=== PATIENT | male | born 1955 | race African-American/Black ===

== ENCOUNTER 2021-07-14 23:24 | Inpatient (IN) ==
[2021-07-14] MEDS ORDERED: FAMOTIDINE 20 MG/2 ML VIAL IV STA (23:57)
[2021-07-14] MEDS ORDERED: SODIUM CHLORIDE 0.9% 1,000 ML IV STA (23:57)
[2021-07-14] MEDS ORDERED: MORPHINE 2 MG/1 ML SYRINGE IV STA (23:57)
[2021-07-15] MEDS: ONDANSETRON 4 MG/2 ML VIAL IV PRN (00:29)
[2021-07-15 00:41] LABS: Albumin 2.9 G/DL (3.4-5.0); Bilirubin,Total 1.8 MG/DL (0.20-1.00); Calcium 8.7 MG/DL (8.5-10.1); Osmolality,Calculated 267.5 MOS/KG (273-304); Potassium 3.6 MMOL/L (3.5-5.1); Total Protein 7.7 G/DL (6.4-8.2)
[2021-07-15 00:50] LABS: Basophils # 0.1 10*3/uL (0.0-0.2); Basophils % 0.2 % (0.0-0.8); Eosinophils % 0.1 % (0.00-10.9); Hematocrit 38.6 VOL% (42.0-52.0); Hemoglobin 11.8 GM/DL (14.0-18.0); Immature Granulocytes % 0.4 %; Immature Granulocytes Absolute 0.14 #; Lymphocytes # 30.8 10*3/uL (1.4-4.0); Lymphocytes % 84.4 % (21.2-54.2); Mean Corpuscular HGB Conc 30.6 GM/DL (32-36); Mean Corpuscular Volume 87.1 FL (87-102); Mean Platelet Volume 10.1 FL (9.6-12.0); Monocytes % 0.8 % (1.7-12.7); Neutrophils % 14.1 % (38.7-73.9); Platelet Count 183 T/CUMM (130-400); Red Blood Count 4.43 MC/CUMM (3.8-5.5); Red Cell Distribution Width 14.7 % (9.3-17.3); White Blood Count 36.5 T/CUMM (4-12)
[2021-07-15] MEDS: SODIUM CHLORIDE 0.9% 1,000 ML IV SCH ×4 (02:43→18:17)
[2021-07-15] MEDS: PANTOPRAZOLE 40 MG VIAL IV SCH ×2 (02:44→08:40)
[2021-07-15 03:07] LABS: Lymphocytes 73 % (20-55); Metamyelocytes 1 %; Segmented Neutrophils 25 % (50-85); Total Cells Counted 100
[2021-07-15 03:08] LABS: Hypochromia 2+; Platelet Estimate Normal; Smudge Cells Moderate
[2021-07-15] MEDS ORDERED: metroNIDAZOLE INJ 500 MG/100 ML PREMIX IV SCH (05:00)
[2021-07-15] MEDS ORDERED: PIPERACILLIN/TAZOBACTAM 3,375 MG in SODIUM CHLORIDE 0.9% 100 ML IV SCH (06:00)
[2021-07-15] MEDS: ENOXAPARIN 30 MG/0.3 ML SYRINGE SUBCUT SCH (10:17)
[2021-07-15 22:24] LABS: Bilirubin,Urine Negative (Negative); Blood, Urine Negative (Negative); Glucose,Urine (UA) Negative (Negative); Ketones,Urine 20 mg/dL (Negative); Mucus,Urine Occasional /LPF (Occasional); Nitrite,Urine Negative (Negative); Protein,Urine 30 MG/DL; RBC,Urine 5 /HPF (0-4); Squamous Epithelial Cell,Urine Occasional /HPF (0-10); Urine Appearance CLEAR (Clear); Urine Color Amber (Yellow); Urine Specific Gravity 1.026 (1.001-1.035)
[2021-07-16] MEDS: SODIUM CHLORIDE 0.9% 1,000 ML IV SCH (00:48)
[2021-07-16 05:10] LABS: Basophils # 0.1 10*3/uL (0.0-0.2); Basophils % 0.2 % (0.0-0.8); Hematocrit 34.8 VOL% (42.0-52.0); Hemoglobin 10.4 GM/DL (14.0-18.0); Immature Granulocytes % 0.7 %; Immature Granulocytes Absolute 0.22 #; Lymphocytes # 27.9 10*3/uL (1.4-4.0); Lymphocytes % 84.6 % (21.2-54.2); Mean Corpuscular HGB Conc 29.9 GM/DL (32-36); Mean Corpuscular Volume 89.9 FL (87-102); Mean Platelet Volume 9.9 FL (9.6-12.0); Monocytes % 0.6 % (1.7-12.7); Neutrophils % 13.9 % (38.7-73.9); Platelet Count 170 T/CUMM (130-400); Red Blood Count 3.87 MC/CUMM (3.8-5.5); Red Cell Distribution Width 14.8 % (9.3-17.3)
[2021-07-16 05:31] LABS: Calcium 8.7 MG/DL (8.5-10.1); Osmolality,Calculated 270.8 MOS/KG (273-304); Potassium 3.1 MMOL/L (3.5-5.1)
[2021-07-16 05:34] LABS: Atypical Lymphocytes Few; Band Neutrophils 2 % (0-10); Lymphocytes 56 % (20-55); Platelet Estimate Adequate; Segmented Neutrophils 40 % (50-85); Total Cells Counted 100
[2021-07-16 05:35] LABS: Hypochromia 1+; Microcytosis 1+; Smudge Cells Moderate
[2021-07-16] MEDS: ENOXAPARIN 30 MG/0.3 ML SYRINGE SUBCUT SCH (10:02)
[2021-07-16] MEDS: PANTOPRAZOLE 40 MG VIAL IV SCH (10:04)
[2021-07-16] MEDS ORDERED: chlorproMAZINE INJ 25 MG in SODIUM CHLORIDE 0.9% 100 ML IV ONE (16:30)
[2021-07-16] MEDS: DEXT 5% NACL 0.45% KCL 20 MEQ 20 MEQ/1,000 ML BAG IV SCH ×3 (16:46→23:41)
[2021-07-17 05:30] LABS: Basophils % 0.2 % (0.0-0.8); Hemoglobin 9.1 GM/DL (14.0-18.0); Immature Granulocytes % 0.8 %; Lymphocytes # 21.6 10*3/uL (1.4-4.0); Mean Corpuscular HGB Conc 31.4 GM/DL (32-36); Mean Corpuscular Volume 87.6 FL (87-102); Mean Platelet Volume 9.5 FL (9.6-12.0); Monocytes % 0.9 % (1.7-12.7); Neutrophils % 14.1 % (38.7-73.9); Platelet Count 137 T/CUMM (130-400); Red Blood Count 3.31 MC/CUMM (3.8-5.5); Red Cell Distribution Width 14.5 % (9.3-17.3); White Blood Count 25.7 T/CUMM (4-12)
[2021-07-17 05:35] LABS: Osmolality,Calculated 265.4 MOS/KG (273-304); Potassium 3.2 MMOL/L (3.5-5.1)
[2021-07-17 05:59] LABS: Atypical Lymphocytes Few; Band Neutrophils 2 % (0-10); Hypochromia 1+; Lymphocytes 47 % (20-55); Microcytosis 1+; Platelet Estimate Normal; Segmented Neutrophils 48 % (50-85); Smudge Cells Moderate; Total Cells Counted 100
[2021-07-17] MEDS: DEXT 5% NACL 0.45% KCL 20 MEQ 20 MEQ/1,000 ML BAG IV SCH ×3 (06:49→22:28)
[2021-07-17] MEDS: PANTOPRAZOLE 40 MG VIAL IV SCH (12:06)
[2021-07-17] MEDS: ENOXAPARIN 30 MG/0.3 ML SYRINGE SUBCUT SCH (12:08)
[2021-07-18] MEDS: DEXT 5% NACL 0.45% KCL 20 MEQ 20 MEQ/1,000 ML BAG IV SCH ×3 (05:16→21:46)
[2021-07-18 08:32] LABS: Basophils # 0.1 10*3/uL (0.0-0.2); Basophils % 0.2 % (0.0-0.8); Hematocrit 30.2 VOL% (42.0-52.0); Hemoglobin 9.5 GM/DL (14.0-18.0); Immature Granulocytes % 0.6 %; Immature Granulocytes Absolute 0.22 #; Lymphocytes # 31.9 10*3/uL (1.4-4.0); Lymphocytes % 87.4 % (21.2-54.2); Mean Corpuscular HGB Conc 31.5 GM/DL (32-36); Mean Platelet Volume 9.5 FL (9.6-12.0); Monocytes % 0.7 % (1.7-12.7); NRBC # 0.03 10*3/uL; Neutrophils % 11.1 % (38.7-73.9); Platelet Count 149 T/CUMM (130-400); Red Blood Count 3.47 MC/CUMM (3.8-5.5); Red Cell Distribution Width 14.4 % (9.3-17.3); White Blood Count 36.5 T/CUMM (4-12)
[2021-07-18 08:51] LABS: Calcium 7.4 MG/DL (8.5-10.1); Osmolality,Calculated 261.5 MOS/KG (273-304); Potassium 3.4 MMOL/L (3.5-5.1)
[2021-07-18 09:12] LABS: Lymphocytes 65 % (20-55); Segmented Neutrophils 35 % (50-85); Total Cells Counted 100
[2021-07-18 09:16] LABS: Hypochromia 1+; Microcytosis 1+
[2021-07-18 09:17] LABS: Smudge Cells Few
[2021-07-18 09:18] LABS: Platelet Estimate Adequate
[2021-07-18] MEDS: PANTOPRAZOLE 40 MG VIAL IV SCH (10:48)
[2021-07-18] MEDS ORDERED: MIDAZOLAM 2 MG/2 ML VIAL ONE (11:49)
[2021-07-18] MEDS ORDERED: fentaNYL 100 MCG/2 ML VIAL ONE (11:49)
[2021-07-18] MEDS ORDERED: ROCURONIUM 50 MG/5 ML VIAL IV ONE (11:53)
[2021-07-18] MEDS ORDERED: propofoL 200 MG/20 ML VIAL IV ONE (11:53)
[2021-07-18] MEDS ORDERED: LIDOCAINE 2% 5 ML VIAL ONE (11:53)
[2021-07-18] MEDS ORDERED: SUCCINYLCHOLINE 200 MG/10 ML VIAL ONE (11:53)
[2021-07-18] MEDS ORDERED: SEVOFLURANE 1 UNIT/15 MINUTE INH ONE ×3 (11:53→13:38)
[2021-07-18] MEDS ORDERED: LACTATED RINGERS 1,000 ML IV SCH (12:00)
[2021-07-18] MEDS ORDERED: ALBUMIN 5% 25.0 GM/500 ML VIAL IV ONE (12:07)
[2021-07-18] MEDS ORDERED: ONDANSETRON 4 MG/2 ML VIAL ONE ×2 (12:57→13:38)
[2021-07-18] MEDS ORDERED: SUGAMMADEX 200 MG/2 ML VIAL IV ONE (13:10)
[2021-07-18 14:21] LABS: Bacteria,Urine Occasional /HPF (Few); Bilirubin,Urine Negative (Negative); Blood, Urine Small mg/dL (Negative); Glucose,Urine (UA) Negative (Negative); Ketones,Urine 5 mg/dL (Negative); Mucus,Urine Occasional /LPF (Occasional); Nitrite,Urine Negative (Negative); Protein,Urine 30 MG/DL; RBC,Urine 2 /HPF (0-4); Urine Appearance CLEAR (Clear); Urine Color Amber (Yellow); Urine Specific Gravity 1.013 (1.001-1.035)
[2021-07-18] MEDS ORDERED: LACTATED RINGERS 1,000 ML IV ONE (15:15)
[2021-07-18] MEDS: ENOXAPARIN 30 MG/0.3 ML SYRINGE SUBCUT SCH (15:27)
[2021-07-19] MEDS: DEXT 5% NACL 0.45% KCL 20 MEQ 20 MEQ/1,000 ML BAG IV SCH ×4 (03:46→21:02)
[2021-07-19] MEDS ORDERED: PHENYLEPHRINE DRIP 20 MG/250 ML PREMIX IV ONE (06:04)
[2021-07-19] MEDS: ONDANSETRON 4 MG/2 ML VIAL IV PRN (06:10)
[2021-07-19 06:39] LABS: Basophils # 0.1 10*3/uL (0.0-0.2); Basophils % 0.2 % (0.0-0.8); Hematocrit 31.4 VOL% (42.0-52.0); Hemoglobin 9.6 GM/DL (14.0-18.0); Immature Granulocytes % 1.9 %; Immature Granulocytes Absolute 0.75 #; Lymphocytes # 35.8 10*3/uL (1.4-4.0); Lymphocytes % 92.5 % (21.2-54.2); Mean Corpuscular HGB Conc 30.6 GM/DL (32-36); Mean Corpuscular Volume 88.5 FL (87-102); Mean Platelet Volume 10.1 FL (9.6-12.0); Monocytes % 0.5 % (1.7-12.7); Neutrophils % 4.9 % (38.7-73.9); Platelet Count 133 T/CUMM (130-400); Red Blood Count 3.55 MC/CUMM (3.8-5.5); Red Cell Distribution Width 14.2 % (9.3-17.3); White Blood Count 38.7 T/CUMM (4-12)
[2021-07-19 06:54] LABS: Calcium 7.3 MG/DL (8.5-10.1); Osmolality,Calculated 261.5 MOS/KG (273-304); Potassium 3.8 MMOL/L (3.5-5.1)
[2021-07-19 07:04] LABS: Atypical Lymphocytes Few; Hypochromia Slight; Lymphocytes 71 % (20-55); Platelet Estimate Normal; Segmented Neutrophils 22 % (50-85); Smudge Cells Moderate; Total Cells Counted 100
[2021-07-19] MEDS ORDERED: LACTATED RINGERS 1,000 ML IV ONE ×2 (07:27→14:07)
[2021-07-19] MEDS ORDERED: GLUCAGON 1 MG VIAL IM PRN (07:57)
[2021-07-19] MEDS ORDERED: DEXTROSE 50% 25 GM/50 ML SYRINGE IV PRN (07:57)
[2021-07-19] MEDS: ENOXAPARIN 30 MG/0.3 ML SYRINGE SUBCUT SCH (09:26)
[2021-07-19] MEDS: PANTOPRAZOLE 40 MG VIAL IV SCH (09:26)
[2021-07-19] MEDS: INSULIN REGULAR 100 UNIT/ML SUBCUT SCH ×2 (11:45→18:30)
[2021-07-19] MEDS: FAT EMULSION 20% 250 ML IV SCH (16:21)
[2021-07-19] MEDS: AMINO ACIDS IV SCH (16:57)
[2021-07-19] MEDS: MULTIVITAMIN IV SCH (16:57)
[2021-07-19] MEDS: LYTES IV SCH (16:57)
[2021-07-19] MEDS: DEXT IV SCH (16:57)
[2021-07-19] MEDS ORDERED: DEXTROSE 10% 1,000 ML IV PRN (17:00)
[2021-07-20] MEDS: INSULIN REGULAR 100 UNIT/ML SUBCUT SCH ×4 (00:37→18:00)
[2021-07-20] MEDS: ACETAMINOPHEN 325 MG/10.15 ML UDCUP PO PRN ×2 (00:52→09:03)
[2021-07-20] MEDS: DEXT 5% NACL 0.45% KCL 20 MEQ 20 MEQ/1,000 ML BAG IV SCH ×2 (02:05→07:07)
[2021-07-20 05:53] LABS: Basophils # 0.1 10*3/uL (0.0-0.2); Basophils % 0.2 % (0.0-0.8); Eosinophils % 0.1 % (0.00-10.9); Hematocrit 25.4 VOL% (42.0-52.0); Immature Granulocytes % 0.9 %; Immature Granulocytes Absolute 0.32 #; Lymphocytes % 91.8 % (21.2-54.2); Mean Corpuscular HGB Conc 31.5 GM/DL (32-36); Mean Corpuscular Volume 87.9 FL (87-102); Mean Platelet Volume 9.8 FL (9.6-12.0); Monocytes % 0.7 % (1.7-12.7); NRBC # 0.06 10*3/uL; Neutrophils % 6.3 % (38.7-73.9); Red Blood Count 2.89 MC/CUMM (3.8-5.5); White Blood Count 33.7 T/CUMM (4-12)
[2021-07-20 05:59] LABS: Platelet Count 99 T/CUMM (130-400)
[2021-07-20 06:06] LABS: Calcium 6.7 MG/DL (8.5-10.1); Osmolality,Calculated 262.5 MOS/KG (273-304); Potassium 3.9 MMOL/L (3.5-5.1)
[2021-07-20 06:07] LABS: Band Neutrophils 1 % (0-10); Lymphocytes 82 % (20-55); Platelet Estimate Decreased; Segmented Neutrophils 9 % (50-85); Smudge Cells Many; Total Cells Counted 100
[2021-07-20 06:08] LABS: Hypochromia Slight
[2021-07-20] MEDS: SODIUM CHLORIDE 0.9% 1,000 ML IV SCH ×2 (08:37→21:50)
[2021-07-20] MEDS: PANTOPRAZOLE 40 MG VIAL IV SCH (09:04)
[2021-07-20] MEDS: ENOXAPARIN 30 MG/0.3 ML SYRINGE SUBCUT SCH (09:04)
[2021-07-20] MEDS ORDERED: ALBUTEROL/IPRATROPIUM 3 ML NEB RESP TX PRN (09:45)
[2021-07-20] MEDS: LEVOFLOXACIN INJ 750 MG/150 ML PREMIX IV SCH (10:38)
[2021-07-20] MEDS: IBUPROFEN 100 MG/5 ML UDCUP PO PRN (10:46)
[2021-07-20] MEDS: ALBUTEROL/IPRATROPIUM 3 ML NEB RESP TX SCH ×2 (13:00→19:02)
[2021-07-20] MEDS ORDERED: MAGNESIUM SULF RIDER 2 GM/50 ML PREMIX IV PRN (13:09)
[2021-07-20] MEDS ORDERED: POTASSIUM PHOSPHATE 30 MMOL in SODIUM CHLORIDE 0.9% 250 ML IV ONE (14:00)
[2021-07-20] MEDS: FAT EMULSION 20% 250 ML IV SCH (15:15)
[2021-07-20] MEDS: MULTIVITAMIN IV SCH (17:46)
[2021-07-20] MEDS: DEXT IV SCH (17:46)
[2021-07-20] MEDS: AMINO ACIDS IV SCH (17:46)
[2021-07-20] MEDS: LYTES IV SCH (17:46)
[2021-07-21] MEDS: INSULIN REGULAR 100 UNIT/ML SUBCUT SCH ×4 (00:05→17:19)
[2021-07-21] MEDS: ACETAMINOPHEN 325 MG/10.15 ML UDCUP PO PRN (00:40)
[2021-07-21] MEDS: ALBUTEROL/IPRATROPIUM 3 ML NEB RESP TX SCH ×4 (00:53→19:40)
[2021-07-21 05:40] LABS: Basophils # 0.1 10*3/uL (0.0-0.2); Basophils % 0.2 % (0.0-0.8); Hematocrit 25.2 VOL% (42.0-52.0); Hemoglobin 7.6 GM/DL (14.0-18.0); Immature Granulocytes % 1.3 %; Immature Granulocytes Absolute 0.53 #; Lymphocytes # 38.6 10*3/uL (1.4-4.0); Lymphocytes % 92.7 % (21.2-54.2); Mean Corpuscular HGB Conc 30.2 GM/DL (32-36); Mean Corpuscular Volume 87.8 FL (87-102); Mean Platelet Volume 10.1 FL (9.6-12.0); Monocytes % 0.6 % (1.7-12.7); Neutrophils % 5.2 % (38.7-73.9); Platelet Count 106 T/CUMM (130-400); Red Blood Count 2.87 MC/CUMM (3.8-5.5); Red Cell Distribution Width 13.8 % (9.3-17.3)
[2021-07-21 05:57] LABS: White Blood Count 41.6 T/CUMM (4-12)
[2021-07-21 06:08] LABS: Calcium 7.4 MG/DL (8.5-10.1); Osmolality,Calculated 262.5 MOS/KG (273-304); Potassium 4.1 MMOL/L (3.5-5.1)
[2021-07-21 06:21] LABS: Band Neutrophils 5 % (0-10); Lymphocytes 88 % (20-55); Platelet Estimate Adequate; Segmented Neutrophils 5 % (50-85); Smudge Cells 4+; Total Cells Counted 100
[2021-07-21 06:22] LABS: Anisocytosis 1+; Atypical Lymphocytes Few
[2021-07-21] MEDS: PANTOPRAZOLE 40 MG VIAL IV SCH (08:22)
[2021-07-21] MEDS: ENOXAPARIN 30 MG/0.3 ML SYRINGE SUBCUT SCH (09:02)
[2021-07-21] MEDS: LEVOFLOXACIN INJ 750 MG/150 ML PREMIX IV SCH (09:02)
[2021-07-21] MEDS ORDERED: FUROSEMIDE 40 MG/4 ML VIAL IV ONE (13:52)
[2021-07-21] MEDS: SODIUM CHLORIDE 0.9% 1,000 ML IV SCH ×2 (14:11→14:12)
[2021-07-21] MEDS: FAT EMULSION 20% 250 ML IV SCH (14:34)
[2021-07-21] MEDS: MULTIVITAMIN IV SCH (17:09)
[2021-07-21] MEDS: AMINO ACIDS IV SCH (17:09)
[2021-07-21] MEDS: LYTES IV SCH (17:09)
[2021-07-21] MEDS: DEXT IV SCH (17:09)
[2021-07-21] MEDS: IBUPROFEN 100 MG/5 ML UDCUP PO PRN (19:45)
[2021-07-21] MEDS ORDERED: VECURONIUM 10 MG VIAL IV ONE (21:32)
[2021-07-21] MEDS ORDERED: ETOMIDATE 20 MG/10 ML VIAL IV ONE (21:32)
[2021-07-21] MEDS ORDERED: ATROPINE 1 MG/10 ML SYRINGE IV ONE (21:35)
[2021-07-21] MEDS ORDERED: CALCIUM CHLORIDE 1,000 MG/10 ML SYRINGE IV ONE (21:38)
[2021-07-21] MEDS ORDERED: EPINEPHrine 1 MG/10 ML SYRINGE IV ONE (21:39)
[2021-07-21] MEDS ORDERED: SODIUM BICARBONATE 50 MEQ/50 ML SYRINGE IV ONE (21:40)
[2021-07-21] MEDS ORDERED: NOREPINEPHRINE 4 MG/4 ML VIAL IV ONE (22:06)
[2021-07-21] MEDS: NOREPINEPHRINE 8 MG in SODIUM CHLORIDE 0.9% 242 ML IV PRN (22:12)
[2021-07-21 22:16] LABS: ABG HCO3 29.3 MMOL/L (20-26); ABG PCO2 63.7 MM HG (35-48); ABG PH 7.281 (7.35-7.45); ABG TCO2 31.3 MMOL/L (23-27); Allen Test Positive; Pt O2 Delivery Device Ventilator
[2021-07-21 22:18] LABS: ABG PO2 32.6 MM HG (80-95)
[2021-07-21 22:24] LABS: Hematocrit 24.8 VOL% (42.0-52.0); Hemoglobin 7.2 GM/DL (14.0-18.0); Immature Granulocytes % 0.3 %; Immature Granulocytes Absolute 0.21 #; Lymphocytes % 95.7 % (21.2-54.2); Mean Corpuscular Volume 91.5 FL (87-102); Mean Platelet Volume 10.9 FL (9.6-12.0); Monocytes % 0.5 % (1.7-12.7); NRBC # 0.08 10*3/uL; Neutrophils % 3.5 % (38.7-73.9); Platelet Count 139 T/CUMM (130-400); Red Blood Count 2.71 MC/CUMM (3.8-5.5); Red Cell Distribution Width 14.3 % (9.3-17.3)
[2021-07-21 22:27] LABS: White Blood Count 79.5 T/CUMM (4-12)
[2021-07-21 22:54] LABS: Blood Urea Nitrogen 13 MG/DL (7-18); Calcium 8.9 MG/DL (8.5-10.1); Carbon Dioxide 24 MMOL/L (21-32); Estimated Glom Filtration Rate 113 ML/MIN; Glucose 150 MG/DL (74-106); Osmolality,Calculated 272.1 MOS/KG (273-304); Potassium 4.2 MMOL/L (3.5-5.1); Sodium 135 MMOL/L (136-145)
[2021-07-21 22:55] LABS: ABG Base Excess -6.4 MMOL/L (-2.5-2.5); ABG HCO3 23.6 MMOL/L (20-26); ABG Oxygen Saturation 77.2 % (95-100); ABG PO2 61.1 MM HG (80-95)
[2021-07-21] MEDS ORDERED: LACTATED RINGERS 1,000 ML IV ONE (22:55)
[2021-07-21 22:56] LABS: ABG PH 7.097 (7.35-7.45)
[2021-07-21 22:57] LABS: ABG PCO2 78.4 MM HG (35-48)
[2021-07-21] MEDS ORDERED: SODIUM CHLORIDE 0.9% 1,000 ML IV PRN (22:57)
[2021-07-21] MEDS ORDERED: SODIUM BICARBONATE 50 MEQ/50 ML VIAL IV ONE (22:59)
[2021-07-21 23:07] LABS: Lymphocytes 93 % (20-55); Segmented Neutrophils 7 % (50-85); Total Cells Counted 100
[2021-07-21 23:08] LABS: Smudge Cells Many
[2021-07-21 23:09] LABS: Hypochromia 1+; Platelet Estimate Adequate
[2021-07-21] MEDS ORDERED: CISATRACURIUM 10 MG/5 ML VIAL IV PRN (23:29)
[2021-07-22] MEDS: MIDAZOLAM 100 MG in SODIUM CHLORIDE 0.9% 80 ML IV PRN ×2 (00:19→23:25)
[2021-07-22 00:33] LABS: Bacteria,Urine Occasional /HPF (Few); Bilirubin,Urine Negative (Negative); Blood, Urine Moderate mg/dL (Negative); Glucose,Urine (UA) 50 mg/dL (Negative); Hyaline Casts,Urine 6 /LPF (0-3); Ketones,Urine Negative (Negative); Mucus,Urine Moderate /LPF (Occasional); Nitrite,Urine Negative (Negative); Protein,Urine 30 MG/DL; RBC,Urine 41 /HPF (0-4); Squamous Epithelial Cell,Urine Occasional /HPF (0-10); Urine Appearance Slightly Hazy (Clear); Urine Color Amber (Yellow); Urine Specific Gravity 1.016 (1.001-1.035)
[2021-07-22 00:40] LABS: Hemoglobin 7.7 GM/DL (14.0-18.0); Immature Granulocytes % 0.3 %; Immature Granulocytes Absolute 0.34 #; Lymphocytes # 102.4 10*3/uL (1.4-4.0); Lymphocytes % 95.3 % (21.2-54.2); Mean Corpuscular HGB Conc 28.5 GM/DL (32-36); Mean Corpuscular Volume 92.5 FL (87-102); Monocytes % 0.9 % (1.7-12.7); NRBC # 0.14 10*3/uL; Neutrophils % 3.5 % (38.7-73.9); Platelet Count 141 T/CUMM (130-400); Red Blood Count 2.92 MC/CUMM (3.8-5.5); Red Cell Distribution Width 14.3 % (9.3-17.3)
[2021-07-22 00:41] LABS: White Blood Count 107.4 T/CUMM (4-12)
[2021-07-22 00:42] LABS: INR 1.4; PT Patient Result 15.1 SECS (10.5-12.0); Partial Thromboplastin Time 39.1 SECS (23.8-32.1)
[2021-07-22 00:44] LABS: Amylase 20 U/L (25-115)
[2021-07-22] MEDS ORDERED: NOREPINEPHRINE 4 MG/4 ML VIAL IV ONE (00:44)
[2021-07-22] MEDS: NOREPINEPHRINE 8 MG in SODIUM CHLORIDE 0.9% 242 ML IV PRN ×2 (00:48→06:30)
[2021-07-22] MEDS: VASOPRESSIN 100 UNITS in SODIUM CHLORIDE 0.9% 95 ML IV PRN (00:55)
[2021-07-22 01:10] LABS: ABG Base Excess -4.5 MMOL/L (-2.5-2.5); ABG HCO3 20.5 MMOL/L (20-26); ABG Oxygen Saturation 86.8 % (95-100); ABG PO2 76.1 MM HG (80-95)
[2021-07-22 01:13] LABS: ABG PH 7.133 (7.35-7.45)
[2021-07-22 01:18] LABS: Lymphocytes 90 % (20-55); Segmented Neutrophils 10 % (50-85); Total Cells Counted 100
[2021-07-22 01:19] LABS: Platelet Estimate Adequate; Smudge Cells Many
[2021-07-22 01:20] LABS: Microcytosis 1+; Polychromasia Slight
[2021-07-22 01:21] LABS: Hypochromia Slight
[2021-07-22] MEDS: ALBUTEROL/IPRATROPIUM 3 ML NEB RESP TX SCH ×4 (01:43→19:53)
[2021-07-22] MEDS: MEROPENEM 500 MG in SODIUM CHLORIDE 0.9% 100 ML IV SCH ×5 (03:22→23:18)
[2021-07-22] MEDS: HYDROCORTISONE 100 MG VIAL IV SCH ×5 (03:25→23:22)
[2021-07-22] MEDS: SODIUM BICARB INJ 100 MEQ in DEXTROSE 5% 1,000 ML IV SCH ×3 (04:22→18:37)
[2021-07-22 05:08] LABS: ABG Base Excess -0.8 MMOL/L (-2.5-2.5); ABG HCO3 23.8 MMOL/L (20-26); ABG Oxygen Saturation 99.3 % (95-100); ABG PH 7.293 (7.35-7.45); ABG TCO2 24.7 MMOL/L (23-27)
[2021-07-22 05:27] LABS: Basophils # 0.1 10*3/uL (0.0-0.2); Basophils % 0.1 % (0.0-0.8); Hemoglobin 6.8 GM/DL (14.0-18.0); Immature Granulocytes % 0.8 %; Lymphocytes # 56.2 10*3/uL (1.4-4.0); Lymphocytes % 93.6 % (21.2-54.2); Mean Corpuscular HGB Conc 29.6 GM/DL (32-36); Mean Corpuscular Volume 89.5 FL (87-102); Mean Platelet Volume 11.2 FL (9.6-12.0); Monocytes % 0.6 % (1.7-12.7); NRBC # 0.11 10*3/uL; Neutrophils % 4.9 % (38.7-73.9); Platelet Count 101 T/CUMM (130-400); Red Blood Count 2.57 MC/CUMM (3.8-5.5); Red Cell Distribution Width 14.2 % (9.3-17.3)
[2021-07-22 05:37] LABS: Alanine Aminotransferase 12 U/L (16-61); Albumin 1.1 G/DL (3.4-5.0); Alkaline Phosphatase 54 U/L (45-117); Aspartate Amino Transferase 44 U/L (0-37); Blood Urea Nitrogen 18 MG/DL (7-18); Calcium 7.7 MG/DL (8.5-10.1); Carbon Dioxide 25 MMOL/L (21-32); Estimated Glom Filtration Rate 117 ML/MIN; Glucose 130 MG/DL (74-106); Osmolality,Calculated 269.4 MOS/KG (273-304); Potassium 3.9 MMOL/L (3.5-5.1); Sodium 133 MMOL/L (136-145); Total Protein 4.6 G/DL (6.4-8.2)
[2021-07-22 05:51] LABS: Smudge Cells 4+
[2021-07-22 05:54] LABS: Anisocytosis 1+; Band Neutrophils 8 % (0-10); Hypochromia 1+; Lymphocytes 69 % (20-55); Metamyelocytes 5 %; Nucleated Red Blood Cells 1 (0-5); Platelet Estimate Adequate; Segmented Neutrophils 16 % (50-85); Total Cells Counted 100
[2021-07-22 05:55] LABS: Misc Morphology 5S
[2021-07-22 06:07] LABS: Atypical Lymphocytes Few
[2021-07-22] MEDS: INSULIN REGULAR 100 UNIT/ML SUBCUT SCH ×2 (06:49)
[2021-07-22] MEDS: CISATRACURIUM 200 MG in SODIUM CHLORIDE 0.9% 180 ML IV PRN ×2 (08:46→20:17)
[2021-07-22] MEDS: PANTOPRAZOLE 40 MG VIAL IV SCH (09:07)
[2021-07-22] MEDS: ENOXAPARIN 30 MG/0.3 ML SYRINGE SUBCUT SCH (09:07)
[2021-07-22] MEDS: LEVOFLOXACIN INJ 750 MG/150 ML PREMIX IV SCH (09:07)
[2021-07-22 11:04] LABS: ABG Base Excess 5.5 MMOL/L (-2.5-2.5); ABG HCO3 31.5 MMOL/L (20-26); ABG Oxygen Saturation 99.1 % (95-100); ABG PCO2 55.7 MM HG (35-48); ABG TCO2 33.2 MMOL/L (23-27)
[2021-07-22 11:25] LABS: INR 1.8
[2021-07-22 11:37] LABS: Basophils % 0.1 % (0.0-0.8); Hematocrit 23.3 VOL% (42.0-52.0); Hemoglobin 7.4 GM/DL (14.0-18.0); Immature Granulocytes % 1.3 %; Immature Granulocytes Absolute 0.27 #; Lymphocytes # 18.4 10*3/uL (1.4-4.0); Lymphocytes % 88.4 % (21.2-54.2); Mean Corpuscular HGB Conc 31.8 GM/DL (32-36); Mean Corpuscular Volume 87.3 FL (87-102); Mean Platelet Volume 10.8 FL (9.6-12.0); Monocytes % 0.6 % (1.7-12.7); NRBC # 0.04 10*3/uL; Neutrophils % 9.6 % (38.7-73.9); Red Blood Count 2.67 MC/CUMM (3.8-5.5)
[2021-07-22 11:39] LABS: Platelet Count 48 T/CUMM (130-400); White Blood Count 20.8 T/CUMM (4-12)
[2021-07-22 11:44] LABS: Blood Urea Nitrogen 19 MG/DL (7-18); Calcium 7.2 MG/DL (8.5-10.1); Carbon Dioxide 31 MMOL/L (21-32); Estimated Glom Filtration Rate 132 ML/MIN; Glucose 225 MG/DL (74-106); Osmolality,Calculated 274.4 MOS/KG (273-304); Potassium 3.4 MMOL/L (3.5-5.1); Sodium 133 MMOL/L (136-145)
[2021-07-22] MEDS ORDERED: FUROSEMIDE 40 MG/4 ML VIAL IV ONE (11:49)
[2021-07-22 12:04] LABS: Anisocytosis 1+; Band Neutrophils 11 % (0-10); Lymphocytes 74 % (20-55); Macrocytosis Slight; Myelocytes 1 %; Platelet Estimate Decreased; Segmented Neutrophils 7 % (50-85); Smudge Cells 4+; Total Cells Counted 100
[2021-07-22 12:05] LABS: Atypical Lymphocytes Few; Hypochromia Slight; Nucleated Red Blood Cells 1 (0-5)
[2021-07-22] MEDS: ACETYLCYSTEINE 600 MG CAPSULE PO SCH (12:45)
[2021-07-22] MEDS: SODIUM CHLORIDE 0.9% 1,000 ML IV SCH (15:12)
[2021-07-22] MEDS: MINERAL OIL/PETROLATUM OPH OINT 3.5 GM TUBE BOTH EYES SCH ×2 (15:14→20:37)
[2021-07-22 17:07] LABS: ABG Base Excess 9.1 MMOL/L (-2.5-2.5); ABG HCO3 35.2 MMOL/L (20-26); ABG Oxygen Saturation 98.6 % (95-100); ABG PCO2 57.1 MM HG (35-48); ABG PH 7.408 (7.35-7.45); ABG PO2 139.3 MM HG (80-95)
[2021-07-22 17:09] LABS: Basophils # 0.1 10*3/uL (0.0-0.2); Basophils % 0.2 % (0.0-0.8); Hemoglobin 9.8 GM/DL (14.0-18.0); Immature Granulocytes % 0.7 %; Immature Granulocytes Absolute 0.21 #; Lymphocytes # 28.5 10*3/uL (1.4-4.0); Lymphocytes % 91.7 % (21.2-54.2); Mean Corpuscular HGB Conc 32.7 GM/DL (32-36); Mean Corpuscular Volume 85.5 FL (87-102); Mean Platelet Volume 11.3 FL (9.6-12.0); Monocytes % 0.3 % (1.7-12.7); NRBC # 0.03 10*3/uL; Neutrophils % 7.1 % (38.7-73.9); Platelet Count 57 T/CUMM (130-400); Red Blood Count 3.51 MC/CUMM (3.8-5.5); Red Cell Distribution Width 13.7 % (9.3-17.3); White Blood Count 31.1 T/CUMM (4-12)
[2021-07-22 17:28] LABS: Blood Urea Nitrogen 18 MG/DL (7-18); Calcium 7.1 MG/DL (8.5-10.1); Carbon Dioxide 35 MMOL/L (21-32); Estimated Glom Filtration Rate 142 ML/MIN; Glucose 220 MG/DL (74-106); Osmolality,Calculated 274.4 MOS/KG (273-304); Potassium 2.7 MMOL/L (3.5-5.1); Sodium 133 MMOL/L (136-145)
[2021-07-22 17:45] LABS: INR 1.4; PT Patient Result 15.2 SECS (10.5-12.0)
[2021-07-22] MEDS: POTASSIUM CHLORIDE RIDER 20 MEQ/100 ML PREMIX IV PRN ×2 (17:45→18:52)
[2021-07-22] MEDS ORDERED: POTASSIUM CHLORIDE RIDER 10 MEQ/100 ML PREMIX IV ONE (17:46)
[2021-07-22 17:50] LABS: Partial Thromboplastin Time 43.6 SECS (23.8-32.1)
[2021-07-22 17:55] LABS: Band Neutrophils 4 % (0-10); Lymphocytes 92 % (20-55); Segmented Neutrophils 3 % (50-85); Total Cells Counted 100
[2021-07-22 17:57] LABS: Hypochromia Slight
[2021-07-22 17:58] LABS: Platelet Estimate Decreased; Smudge Cells Many
[2021-07-22] MEDS: POTASSIUM CHLORIDE RIDER 10 MEQ/100 ML PREMIX IV PRN (19:52)
[2021-07-22] MEDS ORDERED: EPINEPHrine 1 MG/10 ML SYRINGE ONE (21:33)
[2021-07-22] MEDS ORDERED: SODIUM BICARBONATE 50 MEQ/50 ML SYRINGE IV ONE (21:33)
[2021-07-22] MEDS ORDERED: ATROPINE 1 MG/10 ML SYRINGE ONE (21:33)
[2021-07-22] MEDS ORDERED: CALCIUM CHLORIDE 1,000 MG/10 ML SYRINGE IV ONE (21:33)
[2021-07-22 23:03] LABS: Basophils % 0.1 % (0.0-0.8); Hematocrit 26.4 VOL% (42.0-52.0); Hemoglobin 8.7 GM/DL (14.0-18.0); Immature Granulocytes % 0.8 %; Immature Granulocytes Absolute 0.18 #; Lymphocytes # 19.6 10*3/uL (1.4-4.0); Lymphocytes % 89.2 % (21.2-54.2); Mean Corpuscular Volume 84.3 FL (87-102); Mean Platelet Volume 11.2 FL (9.6-12.0); Monocytes % 0.4 % (1.7-12.7); NRBC # 0.02 10*3/uL; Neutrophils % 9.5 % (38.7-73.9); Platelet Count 44 T/CUMM (130-400); Red Blood Count 3.13 MC/CUMM (3.8-5.5); Red Cell Distribution Width 13.6 % (9.3-17.3)
[2021-07-22 23:09] LABS: INR 1.3; PT Patient Result 14.6 SECS (10.5-12.0)
[2021-07-22 23:21] LABS: Partial Thromboplastin Time 44.5 SECS (23.8-32.1)
[2021-07-23 00:11] LABS: Blood Urea Nitrogen 17 MG/DL (7-18); Carbon Dioxide 38 MMOL/L (21-32); Estimated Glom Filtration Rate 156 ML/MIN; Glucose 166 MG/DL (74-106); Osmolality,Calculated 269.5 MOS/KG (273-304); Potassium 3.4 MMOL/L (3.5-5.1); Sodium 132 MMOL/L (136-145)
[2021-07-23 00:21] LABS: Band Neutrophils 1 % (0-10); Lymphocytes 83 % (20-55); Segmented Neutrophils 16 % (50-85); Total Cells Counted 100
[2021-07-23 00:22] LABS: Microcytosis 1+; Platelet Estimate Decreased; Smudge Cells Many
[2021-07-23 00:23] LABS: Hypochromia 1+; Polychromasia Slight
[2021-07-23] MEDS: ALBUTEROL/IPRATROPIUM 3 ML NEB RESP TX SCH ×4 (01:00→20:33)
[2021-07-23] MEDS: SODIUM BICARB INJ 100 MEQ in DEXTROSE 5% 1,000 ML IV SCH (01:54)
[2021-07-23] MEDS ORDERED: ALBUMIN 25% 25 GM/100 ML VIAL IV ONE (03:26)
[2021-07-23 04:32] LABS: ABG HCO3 35.8 MMOL/L (20-26); ABG Oxygen Saturation 98.3 % (95-100); ABG PCO2 58.8 MM HG (35-48); ABG PH 7.423 (7.35-7.45); ABG TCO2 35.7 MMOL/L (23-27)
[2021-07-23 04:39] LABS: Basophils % 0.1 % (0.0-0.8); Hematocrit 24.8 VOL% (42.0-52.0); Hemoglobin 8.2 GM/DL (14.0-18.0); Immature Granulocytes % 1.2 %; Immature Granulocytes Absolute 0.22 #; Lymphocytes # 15.5 10*3/uL (1.4-4.0); Lymphocytes % 86.3 % (21.2-54.2); Mean Corpuscular HGB Conc 33.1 GM/DL (32-36); Mean Corpuscular Volume 84.4 FL (87-102); Monocytes % 0.4 % (1.7-12.7); NRBC # 0.02 10*3/uL; Red Blood Count 2.94 MC/CUMM (3.8-5.5); Red Cell Distribution Width 13.5 % (9.3-17.3)
[2021-07-23 04:42] LABS: Platelet Count 38 T/CUMM (130-400)
[2021-07-23 05:04] LABS: Albumin 1.3 G/DL (3.4-5.0); Atypical Lymphocytes Few; Band Neutrophils 1 % (0-10); Bilirubin,Total 1.2 MG/DL (0.20-1.00); Calcium 6.7 MG/DL (8.5-10.1); Hypochromia 1+; Lymphocytes 64 % (20-55); Microcytosis 1+; Osmolality,Calculated 270.4 MOS/KG (273-304); Platelet Estimate Decreased; Potassium 3.3 MMOL/L (3.5-5.1); Segmented Neutrophils 35 % (50-85); Total Cells Counted 100; Total Protein 4.9 G/DL (6.4-8.2)
[2021-07-23 05:05] LABS: Smudge Cells Moderate
[2021-07-23] MEDS: POTASSIUM CHLORIDE RIDER 10 MEQ/100 ML PREMIX IV PRN (05:28)
[2021-07-23] MEDS: HYDROCORTISONE 100 MG VIAL IV SCH ×4 (05:30→23:53)
[2021-07-23] MEDS: MEROPENEM 500 MG in SODIUM CHLORIDE 0.9% 100 ML IV SCH ×4 (05:32→23:53)
[2021-07-23 05:34] LABS: ABG PCO2 76.6 MM HG (35-48)
[2021-07-23] MEDS ORDERED: CALCIUM GLUCONATE 1,000 MG in SODIUM CHLORIDE 0.9% 100 ML IV ONE (06:30)
[2021-07-23 06:36] LABS: INR 1.2; PT Patient Result 13.7 SECS (10.5-12.0); Partial Thromboplastin Time 47.8 SECS (23.8-32.1)
[2021-07-23 07:01] LABS: Blood Urea Nitrogen 18 MG/DL (7-18); Calcium 6.8 MG/DL (8.5-10.1); Carbon Dioxide 37 MMOL/L (21-32); Estimated Glom Filtration Rate 155 ML/MIN; Glucose 150 MG/DL (74-106); Osmolality,Calculated 266.7 MOS/KG (273-304); Potassium 3.3 MMOL/L (3.5-5.1); Sodium 131 MMOL/L (136-145)
[2021-07-23] MEDS: PANTOPRAZOLE 40 MG VIAL IV SCH (09:37)
[2021-07-23] MEDS: ACETYLCYSTEINE 600 MG CAPSULE PO SCH ×4 (09:43→22:30)
[2021-07-23] MEDS: FONDAPARINUX 2.5 MG/0.5 ML SYRINGE SUBCUT SCH (09:43)
[2021-07-23] MEDS: MINERAL OIL/PETROLATUM OPH OINT 3.5 GM TUBE BOTH EYES SCH ×3 (09:44→21:40)
[2021-07-23] MEDS: LEVOFLOXACIN INJ 750 MG/150 ML PREMIX IV SCH (09:44)
[2021-07-23] MEDS: CISATRACURIUM 200 MG in SODIUM CHLORIDE 0.9% 180 ML IV PRN (11:00)
[2021-07-23 11:36] LABS: Basophils % 0.1 % (0.0-0.8); Hematocrit 23.4 VOL% (42.0-52.0); Hemoglobin 7.6 GM/DL (14.0-18.0); Immature Granulocytes % 0.6 %; Lymphocytes # 13.5 10*3/uL (1.4-4.0); Lymphocytes % 83.9 % (21.2-54.2); Mean Corpuscular HGB Conc 32.5 GM/DL (32-36); Mean Corpuscular Volume 85.1 FL (87-102); Mean Platelet Volume 11.6 FL (9.6-12.0); Monocytes % 0.4 % (1.7-12.7); Red Blood Count 2.75 MC/CUMM (3.8-5.5); Red Cell Distribution Width 13.9 % (9.3-17.3); White Blood Count 16.1 T/CUMM (4-12)
[2021-07-23 11:41] LABS: Platelet Count 35 T/CUMM (130-400)
[2021-07-23 11:42] LABS: INR 1.2; PT Patient Result 13.4 SECS (10.5-12.0)
[2021-07-23 11:56] LABS: Blood Urea Nitrogen 19 MG/DL (7-18); Carbon Dioxide 37 MMOL/L (21-32); Estimated Glom Filtration Rate 155 ML/MIN; Glucose 123 MG/DL (74-106); Osmolality,Calculated 264.7 MOS/KG (273-304); Potassium 3.5 MMOL/L (3.5-5.1); Sodium 131 MMOL/L (136-145)
[2021-07-23 12:25] LABS: Lymphocytes 61 % (20-55); Segmented Neutrophils 37 % (50-85); Smudge Cells 4+; Total Cells Counted 100
[2021-07-23 12:26] LABS: Anisocytosis 1+; Hypochromia 2+; Platelet Estimate Decreased; Target Cells Slight
[2021-07-23 15:54] LABS: ABG Base Excess 10.6 MMOL/L (-2.5-2.5); ABG HCO3 34.4 MMOL/L (20-26); ABG Oxygen Saturation 97.7 % (95-100); ABG PCO2 62.3 MM HG (35-48); ABG PH 7.391 (7.35-7.45); ABG TCO2 34.5 MMOL/L (23-27)
[2021-07-23 15:58] LABS: Basophils % 0.1 % (0.0-0.8); Hematocrit 26.3 VOL% (42.0-52.0); Hemoglobin 8.5 GM/DL (14.0-18.0); Immature Granulocytes % 0.5 %; Immature Granulocytes Absolute 0.15 #; Lymphocytes # 23.5 10*3/uL (1.4-4.0); Lymphocytes % 84.7 % (21.2-54.2); Mean Corpuscular HGB Conc 32.3 GM/DL (32-36); Mean Corpuscular Volume 85.7 FL (87-102); Mean Platelet Volume 12.2 FL (9.6-12.0); Monocytes % 0.3 % (1.7-12.7); NRBC # 0.02 10*3/uL; Neutrophils % 14.4 % (38.7-73.9); Platelet Count 46 T/CUMM (130-400); Red Blood Count 3.07 MC/CUMM (3.8-5.5); Red Cell Distribution Width 13.9 % (9.3-17.3); White Blood Count 27.7 T/CUMM (4-12)
[2021-07-23 16:17] LABS: Alanine Aminotransferase 27 U/L (16-61); Albumin 1.5 G/DL (3.4-5.0); Alkaline Phosphatase 55 U/L (45-117); Aspartate Amino Transferase 32 U/L (0-37); Blood Urea Nitrogen 19 MG/DL (7-18); Carbon Dioxide 35 MMOL/L (21-32); Estimated Glom Filtration Rate 155 ML/MIN; Glucose 92 MG/DL (74-106); Osmolality,Calculated 267.4 MOS/KG (273-304); Potassium 3.9 MMOL/L (3.5-5.1); Sodium 133 MMOL/L (136-145); Total Protein 5.4 G/DL (6.4-8.2)
[2021-07-23] MEDS: SODIUM CHLORIDE 0.9% 1,000 ML IV SCH (16:18)
[2021-07-23] MEDS: FAT EMULSION 20% 250 ML IV SCH (16:19)
[2021-07-23] MEDS: MULTIVITAMIN INJ 10 ML in AMINO ACIDS/DEXT/LYTES 5-20% 2,000 ML IV SCH (16:19)
[2021-07-23 16:25] LABS: INR 1.2
[2021-07-23] MEDS ORDERED: DEXTROSE 10% 1,000 ML IV PRN (17:00)
[2021-07-23] MEDS: VASOPRESSIN 100 UNITS in SODIUM CHLORIDE 0.9% 95 ML IV PRN (17:30)
[2021-07-23] MEDS: INSULIN REGULAR 100 UNIT/ML SUBCUT SCH (18:47)
[2021-07-23] MEDS: MIDAZOLAM 100 MG in SODIUM CHLORIDE 0.9% 80 ML IV PRN (19:30)
[2021-07-24] MEDS: INSULIN REGULAR 100 UNIT/ML SUBCUT SCH ×4 (00:02→20:00)
[2021-07-24] MEDS: ALBUTEROL/IPRATROPIUM 3 ML NEB RESP TX SCH ×4 (02:15→19:45)
[2021-07-24 05:04] LABS: ABG Base Excess 12.7 MMOL/L (-2.5-2.5); ABG HCO3 36.9 MMOL/L (20-26); ABG Oxygen Saturation 98.9 % (95-100); ABG PH 7.513 (7.35-7.45); ABG PO2 201.1 MM HG (80-95); ABG TCO2 38.4 MMOL/L (23-27)
[2021-07-24 05:09] LABS: Basophils % 0.2 % (0.0-0.8); Hemoglobin 7.4 GM/DL (14.0-18.0); Immature Granulocytes % 0.4 %; Lymphocytes # 19.9 10*3/uL (1.4-4.0); Lymphocytes % 78.9 % (21.2-54.2); Mean Corpuscular HGB Conc 32.2 GM/DL (32-36); Mean Corpuscular Volume 86.8 FL (87-102); Mean Platelet Volume 12.9 FL (9.6-12.0); NRBC # 0.04 10*3/uL; Neutrophils % 19.5 % (38.7-73.9); Platelet Count 43 T/CUMM (130-400); Red Blood Count 2.65 MC/CUMM (3.8-5.5); Red Cell Distribution Width 14.3 % (9.3-17.3); White Blood Count 25.2 T/CUMM (4-12)
[2021-07-24 05:20] LABS: Albumin 1.4 G/DL (3.4-5.0); Bilirubin,Total 0.6 MG/DL (0.20-1.00); Calcium 6.9 MG/DL (8.5-10.1); Osmolality,Calculated 271.2 MOS/KG (273-304); Potassium 3.7 MMOL/L (3.5-5.1)
[2021-07-24 05:30] LABS: Atypical Lymphocytes Few; Band Neutrophils 3 % (0-10); Hypochromia 1+; Lymphocytes 40 % (20-55); Microcytosis 1+; Platelet Estimate Decreased; Segmented Neutrophils 57 % (50-85); Smudge Cells Moderate; Total Cells Counted 100
[2021-07-24 05:35] LABS: Calcium 6.8 MG/DL (8.5-10.1); Osmolality,Calculated 273.1 MOS/KG (273-304); Potassium 3.7 MMOL/L (3.5-5.1)
[2021-07-24] MEDS: MEROPENEM 500 MG in SODIUM CHLORIDE 0.9% 100 ML IV SCH ×4 (05:56→23:42)
[2021-07-24] MEDS: HYDROCORTISONE 100 MG VIAL IV SCH ×4 (05:57→23:43)
[2021-07-24] MEDS: FONDAPARINUX 2.5 MG/0.5 ML SYRINGE SUBCUT SCH (08:44)
[2021-07-24] MEDS: PANTOPRAZOLE 40 MG VIAL IV SCH (08:45)
[2021-07-24] MEDS: ACETYLCYSTEINE 600 MG CAPSULE PO SCH (08:45)
[2021-07-24] MEDS: MINERAL OIL/PETROLATUM OPH OINT 3.5 GM TUBE BOTH EYES SCH ×3 (08:46→21:34)
[2021-07-24] MEDS: LEVOFLOXACIN INJ 750 MG/150 ML PREMIX IV SCH (09:01)
[2021-07-24] MEDS: SODIUM CHLORIDE 0.9% 1,000 ML IV SCH (16:27)
[2021-07-24] MEDS: FAT EMULSION 20% 250 ML IV SCH (18:46)
[2021-07-24] MEDS: MULTIVITAMIN INJ 10 ML in AMINO ACIDS/DEXT/LYTES 5-20% 2,000 ML IV SCH (18:46)
[2021-07-25] MEDS: INSULIN REGULAR 100 UNIT/ML SUBCUT SCH ×5 (00:47→23:32)
[2021-07-25] MEDS: ALBUTEROL/IPRATROPIUM 3 ML NEB RESP TX SCH ×4 (01:12→19:08)
[2021-07-25] MEDS: HYDROmorphone 2 MG/1 ML VIAL IV PRN ×2 (02:02→13:28)
[2021-07-25 04:56] LABS: ABG HCO3 38.2 MMOL/L (20-26); ABG Oxygen Saturation 94.2 % (95-100); ABG PCO2 62.3 MM HG (35-48); ABG PH 7.405 (7.35-7.45); ABG PO2 79.8 MM HG (80-95); ABG TCO2 40.1 MMOL/L (23-27)
[2021-07-25 05:08] LABS: Basophils % 0.1 % (0.0-0.8); Hematocrit 24.2 VOL% (42.0-52.0); Hemoglobin 7.5 GM/DL (14.0-18.0); Immature Granulocytes % 0.3 %; Immature Granulocytes Absolute 0.09 #; Lymphocytes # 22.5 10*3/uL (1.4-4.0); Lymphocytes % 80.7 % (21.2-54.2); Mean Corpuscular Volume 90.6 FL (87-102); Mean Platelet Volume 12.1 FL (9.6-12.0); Monocytes % 0.4 % (1.7-12.7); NRBC # 0.02 10*3/uL; Neutrophils % 18.5 % (38.7-73.9); Platelet Count 50 T/CUMM (130-400); Red Blood Count 2.67 MC/CUMM (3.8-5.5); Red Cell Distribution Width 14.8 % (9.3-17.3); White Blood Count 27.9 T/CUMM (4-12)
[2021-07-25 05:17] LABS: Calcium 7.1 MG/DL (8.5-10.1); Osmolality,Calculated 283.3 MOS/KG (273-304); Potassium 3.4 MMOL/L (3.5-5.1)
[2021-07-25 05:26] LABS: Atypical Lymphocytes Few; Hypochromia 1+; Lymphocytes 48 % (20-55); Microcytosis 1+; Platelet Estimate Decreased; Segmented Neutrophils 52 % (50-85); Smudge Cells Many; Total Cells Counted 100
[2021-07-25] MEDS: MEROPENEM 500 MG in SODIUM CHLORIDE 0.9% 100 ML IV SCH ×4 (05:42→22:02)
[2021-07-25] MEDS: HYDROCORTISONE 100 MG VIAL IV SCH ×4 (05:43→22:02)
[2021-07-25] MEDS ORDERED: POTASSIUM CHLORIDE 20 MEQ PACK PER TUBE SCH (08:00)
[2021-07-25] MEDS: POTASSIUM BICARB EFFERVESCENT 20 MEQ TAB.EFF PER TUBE SCH ×3 (08:41→16:48)
[2021-07-25] MEDS: SODIUM CHLORIDE 0.9% 1,000 ML IV SCH ×2 (10:11→22:21)
[2021-07-25] MEDS: FONDAPARINUX 2.5 MG/0.5 ML SYRINGE SUBCUT SCH (10:11)
[2021-07-25] MEDS: PANTOPRAZOLE 40 MG VIAL IV SCH (10:12)
[2021-07-25] MEDS: MINERAL OIL/PETROLATUM OPH OINT 3.5 GM TUBE BOTH EYES SCH (10:12)
[2021-07-25] MEDS: LEVOFLOXACIN INJ 750 MG/150 ML PREMIX IV SCH (10:12)
[2021-07-25] MEDS: MIDAZOLAM 100 MG in SODIUM CHLORIDE 0.9% 80 ML IV PRN (17:17)
[2021-07-26] MEDS: ALBUTEROL/IPRATROPIUM 3 ML NEB RESP TX SCH ×4 (01:20→19:01)
[2021-07-26] MEDS: SODIUM CHLORIDE 0.9% 1,000 ML IV SCH (02:34)
[2021-07-26] MEDS: MEROPENEM 500 MG in SODIUM CHLORIDE 0.9% 100 ML IV SCH ×3 (04:44→16:16)
[2021-07-26] MEDS: HYDROCORTISONE 100 MG VIAL IV SCH ×3 (04:44→21:32)
[2021-07-26 04:54] LABS: ABG Base Excess 11.1 MMOL/L (-2.5-2.5); ABG HCO3 34.7 MMOL/L (20-26); ABG PCO2 58.7 MM HG (35-48); ABG PH 7.412 (7.35-7.45); ABG PO2 59.9 MM HG (80-95); ABG TCO2 34.9 MMOL/L (23-27)
[2021-07-26 04:56] LABS: Basophils # 0.1 10*3/uL (0.0-0.2); Basophils % 0.2 % (0.0-0.8); Hematocrit 28.6 VOL% (42.0-52.0); Hemoglobin 8.5 GM/DL (14.0-18.0); Immature Granulocytes % 0.3 %; Immature Granulocytes Absolute 0.13 #; Lymphocytes # 37.5 10*3/uL (1.4-4.0); Lymphocytes % 87.3 % (21.2-54.2); Mean Corpuscular HGB Conc 29.7 GM/DL (32-36); Mean Corpuscular Volume 93.2 FL (87-102); Mean Platelet Volume 11.7 FL (9.6-12.0); Monocytes % 0.3 % (1.7-12.7); NRBC # 0.04 10*3/uL; Neutrophils % 11.9 % (38.7-73.9); Platelet Count 66 T/CUMM (130-400); Red Blood Count 3.07 MC/CUMM (3.8-5.5)
[2021-07-26 04:58] LABS: White Blood Count 42.9 T/CUMM (4-12)
[2021-07-26 05:19] LABS: Hypochromia Slight; Platelet Estimate Decreased; Smudge Cells Moderate
[2021-07-26 05:42] LABS: Calcium 7.5 MG/DL (8.5-10.1); Osmolality,Calculated 287.8 MOS/KG (273-304); Potassium 4.1 MMOL/L (3.5-5.1)
[2021-07-26] MEDS: INSULIN REGULAR 100 UNIT/ML SUBCUT SCH ×3 (05:43→18:06)
[2021-07-26] MEDS ORDERED: FUROSEMIDE 40 MG/4 ML VIAL IV ONE (07:18)
[2021-07-26] MEDS: LEVOFLOXACIN INJ 750 MG/150 ML PREMIX IV SCH (09:40)
[2021-07-26] MEDS: FONDAPARINUX 2.5 MG/0.5 ML SYRINGE SUBCUT SCH (09:55)
[2021-07-26] MEDS: PANTOPRAZOLE 40 MG VIAL IV SCH (09:57)
[2021-07-26] MEDS: HYDROcod/ACETAMIN 7.5-325 MG/15 ML UDCUP PO PRN ×2 (11:00→21:32)
[2021-07-26] MEDS: FUROSEMIDE 40 MG/4 ML VIAL IV SCH (16:17)
[2021-07-26] MEDS: ONDANSETRON 4 MG/2 ML VIAL IV PRN (18:00)
[2021-07-27] MEDS: ALBUTEROL/IPRATROPIUM 3 ML NEB RESP TX SCH ×4 (00:55→18:53)
[2021-07-27] MEDS: INSULIN REGULAR 100 UNIT/ML SUBCUT SCH ×4 (03:06→17:33)
[2021-07-27 04:25] LABS: Basophils # 0.1 10*3/uL (0.0-0.2); Basophils % 0.2 % (0.0-0.8); Hematocrit 27.6 VOL% (42.0-52.0); Hemoglobin 8.3 GM/DL (14.0-18.0); Immature Granulocytes % 0.1 %; Immature Granulocytes Absolute 0.05 #; Lymphocytes # 31.3 10*3/uL (1.4-4.0); Lymphocytes % 87.6 % (21.2-54.2); Mean Corpuscular HGB Conc 30.1 GM/DL (32-36); Mean Corpuscular Volume 94.5 FL (87-102); Mean Platelet Volume 11.8 FL (9.6-12.0); Monocytes % 0.2 % (1.7-12.7); NRBC # 0.03 10*3/uL; Neutrophils % 11.9 % (38.7-73.9); Red Blood Count 2.92 MC/CUMM (3.8-5.5); Red Cell Distribution Width 14.9 % (9.3-17.3); White Blood Count 35.7 T/CUMM (4-12)
[2021-07-27 04:26] LABS: Platelet Count 64 T/CUMM (130-400)
[2021-07-27 05:09] LABS: Atypical Lymphocytes Few; Band Neutrophils 1 % (0-10); Hypochromia 1+; Lymphocytes 44 % (20-55); Microcytosis 1+; Platelet Estimate Decreased; Segmented Neutrophils 55 % (50-85); Smudge Cells Many; Total Cells Counted 100
[2021-07-27] MEDS: MEROPENEM 500 MG in SODIUM CHLORIDE 0.9% 100 ML IV SCH ×5 (06:05→22:15)
[2021-07-27 07:47] LABS: Calcium 7.9 MG/DL (8.5-10.1); Osmolality,Calculated 288.8 MOS/KG (273-304); Potassium 3.8 MMOL/L (3.5-5.1)
[2021-07-27] MEDS: FUROSEMIDE 40 MG/4 ML VIAL IV SCH (08:34)
[2021-07-27] MEDS: FONDAPARINUX 2.5 MG/0.5 ML SYRINGE SUBCUT SCH (08:37)
[2021-07-27] MEDS: PANTOPRAZOLE 40 MG VIAL IV SCH (08:39)
[2021-07-27] MEDS: HYDROCORTISONE 100 MG VIAL IV SCH ×3 (08:42→22:10)
[2021-07-27] MEDS: LEVOFLOXACIN INJ 750 MG/150 ML PREMIX IV SCH (09:32)
[2021-07-27] MEDS: HYDROcod/ACETAMIN 7.5-325 MG/15 ML UDCUP PO PRN (10:30)
[2021-07-27] MEDS: POTASSIUM CHLORIDE RIDER 20 MEQ/100 ML PREMIX IV PRN (12:43)
[2021-07-27 14:36] LABS: ABG Base Excess 15.3 MMOL/L (-2.5-2.5); ABG HCO3 39.1 MMOL/L (20-26); ABG Oxygen Saturation 93.7 % (95-100); ABG PCO2 60.6 MM HG (35-48); ABG PH 7.448 (7.35-7.45); ABG PO2 71.4 MM HG (80-95); ABG TCO2 38.6 MMOL/L (23-27)
[2021-07-28] MEDS: ALBUTEROL/IPRATROPIUM 3 ML NEB RESP TX SCH ×4 (01:38→18:51)
[2021-07-28] MEDS: INSULIN REGULAR 100 UNIT/ML SUBCUT SCH ×4 (01:40→17:31)
[2021-07-28] MEDS: HYDROcod/ACETAMIN 7.5-325 MG/15 ML UDCUP PO PRN (03:09)
[2021-07-28 04:41] LABS: Calcium 7.4 MG/DL (8.5-10.1); Osmolality,Calculated 296.3 MOS/KG (273-304); Potassium 3.6 MMOL/L (3.5-5.1)
[2021-07-28 04:43] LABS: Basophils # 0.1 10*3/uL (0.0-0.2); Basophils % 0.2 % (0.0-0.8); Hematocrit 28.2 VOL% (42.0-52.0); Hemoglobin 8.3 GM/DL (14.0-18.0); Immature Granulocytes % 0.3 %; Immature Granulocytes Absolute 0.12 #; Lymphocytes # 32.5 10*3/uL (1.4-4.0); Lymphocytes % 81.4 % (21.2-54.2); Mean Corpuscular HGB Conc 29.4 GM/DL (32-36); Mean Corpuscular Volume 95.3 FL (87-102); Mean Platelet Volume 12.3 FL (9.6-12.0); Monocytes % 0.9 % (1.7-12.7); NRBC # 0.03 10*3/uL; Neutrophils % 17.2 % (38.7-73.9); Platelet Count 67 T/CUMM (130-400); Red Blood Count 2.96 MC/CUMM (3.8-5.5); Red Cell Distribution Width 15.2 % (9.3-17.3); White Blood Count 39.9 T/CUMM (4-12)
[2021-07-28 05:16] LABS: Hypochromia 1+; Lymphocytes 39 % (20-55); Platelet Estimate Decreased; Segmented Neutrophils 58 % (50-85); Smudge Cells Moderate; Total Cells Counted 100
[2021-07-28] MEDS: MEROPENEM 500 MG in SODIUM CHLORIDE 0.9% 100 ML IV SCH ×4 (06:00→23:34)
[2021-07-28] MEDS: HYDROCORTISONE 100 MG VIAL IV SCH ×2 (09:01→21:37)
[2021-07-28] MEDS: FUROSEMIDE 40 MG/4 ML VIAL IV SCH (09:05)
[2021-07-28] MEDS: PANTOPRAZOLE 40 MG VIAL IV SCH (09:07)
[2021-07-28] MEDS: FONDAPARINUX 2.5 MG/0.5 ML SYRINGE SUBCUT SCH (09:10)
[2021-07-28] MEDS: POTASSIUM CHLORIDE RIDER 20 MEQ/100 ML PREMIX IV PRN (11:44)
[2021-07-28] MEDS: VANCOMYCIN INJ 1,000 MG in SODIUM CHLORIDE 0.9% 250 ML IV SCH ×2 (11:50→21:37)
[2021-07-28] MEDS: ONDANSETRON 4 MG/2 ML VIAL IV PRN (20:37)
[2021-07-28] MEDS ORDERED: MORPHINE 2 MG/1 ML SYRINGE IV ONE (22:16)
[2021-07-28] MEDS ORDERED: LEVALBUTEROL 1.25 MG/3 ML NEB RESP TX ONE (22:21)
[2021-07-29] MEDS: ALBUTEROL/IPRATROPIUM 3 ML NEB RESP TX SCH ×4 (00:51→18:41)
[2021-07-29] MEDS: INSULIN REGULAR 100 UNIT/ML SUBCUT SCH ×4 (01:04→18:31)
[2021-07-29] MEDS: MORPHINE 2 MG/1 ML SYRINGE IV PRN ×2 (01:44→23:55)
[2021-07-29 03:54] LABS: ABG Base Excess 14.8 MMOL/L (-2.5-2.5); ABG HCO3 38.6 MMOL/L (20-26); ABG Oxygen Saturation 91.6 % (95-100); ABG PCO2 67.3 MM HG (35-48); ABG PH 7.408 (7.35-7.45); ABG TCO2 38.8 MMOL/L (23-27)
[2021-07-29 03:57] LABS: Basophils # 0.1 10*3/uL (0.0-0.2); Basophils % 0.2 % (0.0-0.8); Hematocrit 30.5 VOL% (42.0-52.0); Hemoglobin 9.1 GM/DL (14.0-18.0); Immature Granulocytes % 0.3 %; Immature Granulocytes Absolute 0.14 #; Lymphocytes # 35.5 10*3/uL (1.4-4.0); Lymphocytes % 81.6 % (21.2-54.2); Mean Corpuscular HGB Conc 29.8 GM/DL (32-36); Mean Platelet Volume 11.4 FL (9.6-12.0); Monocytes % 0.5 % (1.7-12.7); NRBC # 0.02 10*3/uL; Neutrophils % 17.4 % (38.7-73.9); Red Blood Count 3.21 MC/CUMM (3.8-5.5); Red Cell Distribution Width 16.5 % (9.3-17.3)
[2021-07-29 04:12] LABS: Platelet Count 73 T/CUMM (130-400)
[2021-07-29 04:13] LABS: Calcium 7.7 MG/DL (8.5-10.1); Osmolality,Calculated 294.3 MOS/KG (273-304); Potassium 4.5 MMOL/L (3.5-5.1); White Blood Count 43.5 T/CUMM (4-12)
[2021-07-29 04:33] LABS: Band Neutrophils 2 % (0-10); Hypochromia 1+; Lymphocytes 40 % (20-55); Microcytosis 1+; Segmented Neutrophils 58 % (50-85); Total Cells Counted 100
[2021-07-29 04:34] LABS: Atypical Lymphocytes Few; Platelet Estimate Decreased; Smudge Cells Moderate; Target Cells Few
[2021-07-29] MEDS: MEROPENEM 500 MG in SODIUM CHLORIDE 0.9% 100 ML IV SCH (05:45)
[2021-07-29] MEDS: VANCOMYCIN INJ 1,000 MG in SODIUM CHLORIDE 0.9% 250 ML IV SCH ×2 (09:26→22:00)
[2021-07-29] MEDS: FUROSEMIDE 40 MG/4 ML VIAL IV SCH (09:26)
[2021-07-29] MEDS: PANTOPRAZOLE 40 MG VIAL IV SCH (09:26)
[2021-07-29] MEDS: HYDROCORTISONE 100 MG VIAL IV SCH ×2 (09:26→22:50)
[2021-07-29] MEDS: FONDAPARINUX 2.5 MG/0.5 ML SYRINGE SUBCUT SCH (09:27)
[2021-07-29] MEDS: DEXTROSE 10% 250 ML BAG IV PRN (12:15)
[2021-07-30] MEDS: INSULIN REGULAR 100 UNIT/ML SUBCUT SCH ×5 (01:17→23:52)
[2021-07-30 04:55] LABS: ABG Base Excess 15.3 MMOL/L (-2.5-2.5); ABG HCO3 39.1 MMOL/L (20-26); ABG Oxygen Saturation 92.5 % (95-100); ABG PH 7.394 (7.35-7.45); ABG PO2 70.6 MM HG (80-95); ABG TCO2 39.9 MMOL/L (23-27)
[2021-07-30 05:15] LABS: ABG PCO2 70.3 MM HG (35-48)
[2021-07-30 05:20] LABS: Basophils % 0.1 % (0.0-0.8); Eosinophils % 0.1 % (0.00-10.9); Hematocrit 30.8 VOL% (42.0-52.0); Immature Granulocytes % 0.2 %; Lymphocytes # 39.5 10*3/uL (1.4-4.0); Mean Corpuscular HGB Conc 29.2 GM/DL (32-36); Mean Platelet Volume 11.5 FL (9.6-12.0); Monocytes % 0.2 % (1.7-12.7); NRBC # 0.02 10*3/uL; Neutrophils % 15.4 % (38.7-73.9); Red Blood Count 3.21 MC/CUMM (3.8-5.5); Red Cell Distribution Width 16.2 % (9.3-17.3)
[2021-07-30 05:21] LABS: Platelet Count 89 T/CUMM (130-400)
[2021-07-30 05:22] LABS: White Blood Count 47.1 T/CUMM (4-12)
[2021-07-30 05:31] LABS: Calcium 8.1 MG/DL (8.5-10.1); Osmolality,Calculated 300.9 MOS/KG (273-304); Potassium 3.8 MMOL/L (3.5-5.1)
[2021-07-30 05:32] LABS: Atypical Lymphocytes Few; Hypochromia 1+; Lymphocytes 35 % (20-55); Microcytosis 1+; Platelet Estimate Decreased; Segmented Neutrophils 65 % (50-85); Smudge Cells Many; Total Cells Counted 100
[2021-07-30] MEDS: ALBUTEROL/IPRATROPIUM 3 ML NEB RESP TX SCH ×4 (07:06→19:17)
[2021-07-30] MEDS ORDERED: LIDOCAINE 2% VISCOUS 100 ML BOTTLE SWISH/SPIT ONE (07:30)
[2021-07-30] MEDS ORDERED: LIDOCAINE 1% 20 ML VIAL MISC INJ ONE (07:30)
[2021-07-30] MEDS ORDERED: LIDOCAINE 2% 20 ML VIAL RESP TX ONE (07:30)
[2021-07-30] MEDS ORDERED: MIDAZOLAM 2 MG/2 ML VIAL IV ONE (07:30)
[2021-07-30] MEDS: VANCOMYCIN INJ 1,000 MG in SODIUM CHLORIDE 0.9% 250 ML IV SCH ×2 (08:49→17:34)
[2021-07-30] MEDS: PANTOPRAZOLE 40 MG VIAL IV SCH (08:50)
[2021-07-30] MEDS: FUROSEMIDE 40 MG/4 ML VIAL IV SCH (08:50)
[2021-07-30] MEDS: FONDAPARINUX 2.5 MG/0.5 ML SYRINGE SUBCUT SCH (08:50)
[2021-07-30] MEDS: HYDROCORTISONE 100 MG VIAL IV SCH ×2 (08:51→21:47)
[2021-07-30] MEDS: DEXTROSE 10% 250 ML BAG IV PRN (11:46)
[2021-07-31] MEDS: ALBUTEROL/IPRATROPIUM 3 ML NEB RESP TX SCH ×4 (00:14→18:57)
[2021-07-31] MEDS: VANCOMYCIN INJ 1,000 MG in SODIUM CHLORIDE 0.9% 250 ML IV SCH ×3 (01:35→17:29)
[2021-07-31 04:15] LABS: Potassium 3.6 MMOL/L (3.5-5.1)
[2021-07-31 04:24] LABS: Basophils # 0.1 10*3/uL (0.0-0.2); Basophils % 0.2 % (0.0-0.8); Eosinophils % 0.1 % (0.00-10.9); Hematocrit 29.2 VOL% (42.0-52.0); Immature Granulocytes % 0.2 %; Immature Granulocytes Absolute 0.08 #; Lymphocytes # 31.6 10*3/uL (1.4-4.0); Lymphocytes % 82.5 % (21.2-54.2); Mean Corpuscular HGB Conc 28.4 GM/DL (32-36); Mean Corpuscular Volume 98.3 FL (87-102); Mean Platelet Volume 11.7 FL (9.6-12.0); Monocytes % 0.6 % (1.7-12.7); Neutrophils % 16.4 % (38.7-73.9); Platelet Count 88 T/CUMM (130-400); Red Blood Count 2.97 MC/CUMM (3.8-5.5); Red Cell Distribution Width 16.1 % (9.3-17.3); White Blood Count 38.3 T/CUMM (4-12)
[2021-07-31 04:25] LABS: Hemoglobin 8.3 GM/DL (14.0-18.0)
[2021-07-31 04:32] LABS: Atypical Lymphocytes Few; Lymphocytes 50 % (20-55); Platelet Estimate Decreased; Segmented Neutrophils 50 % (50-85); Smudge Cells Many; Total Cells Counted 100
[2021-07-31 04:33] LABS: Hypochromia 1+; Microcytosis 1+
[2021-07-31] MEDS: INSULIN REGULAR 100 UNIT/ML SUBCUT SCH ×3 (06:04→17:30)
[2021-07-31] MEDS: POTASSIUM CHLORIDE RIDER 20 MEQ/100 ML PREMIX IV PRN (06:21)
[2021-07-31] MEDS: FUROSEMIDE 40 MG/4 ML VIAL IV SCH (08:22)
[2021-07-31] MEDS: PANTOPRAZOLE 40 MG VIAL IV SCH (08:22)
[2021-07-31] MEDS: HYDROCORTISONE 100 MG VIAL IV SCH ×2 (08:22→20:46)
[2021-07-31] MEDS: FONDAPARINUX 2.5 MG/0.5 ML SYRINGE SUBCUT SCH (09:20)
[2021-07-31] MEDS: MEROPENEM 500 MG in SODIUM CHLORIDE 0.9% 100 ML IV SCH ×2 (14:07→20:45)
[2021-08-01] MEDS: INSULIN REGULAR 100 UNIT/ML SUBCUT SCH ×4 (00:29→17:11)
[2021-08-01] MEDS: ALBUTEROL/IPRATROPIUM 3 ML NEB RESP TX SCH ×4 (00:51→18:22)
[2021-08-01] MEDS: VANCOMYCIN INJ 1,000 MG in SODIUM CHLORIDE 0.9% 250 ML IV SCH ×2 (01:19→10:52)
[2021-08-01] MEDS: MEROPENEM 500 MG in SODIUM CHLORIDE 0.9% 100 ML IV SCH ×4 (02:40→21:30)
[2021-08-01 04:31] LABS: Calcium 7.7 MG/DL (8.5-10.1); Osmolality,Calculated 301.9 MOS/KG (273-304); Potassium 3.7 MMOL/L (3.5-5.1)
[2021-08-01 04:47] LABS: Basophils # 0.1 10*3/uL (0.0-0.2); Basophils % 0.2 % (0.0-0.8); Eosinophils % 0.1 % (0.00-10.9); Hematocrit 28.4 VOL% (42.0-52.0); Hemoglobin 8.2 GM/DL (14.0-18.0); Immature Granulocytes % 0.2 %; Lymphocytes # 36.2 10*3/uL (1.4-4.0); Lymphocytes % 83.5 % (21.2-54.2); Mean Corpuscular HGB Conc 28.9 GM/DL (32-36); Mean Corpuscular Volume 97.6 FL (87-102); Monocytes % 0.7 % (1.7-12.7); NRBC # 0.08 10*3/uL; Neutrophils % 15.3 % (38.7-73.9); Platelet Count 94 T/CUMM (130-400); Red Blood Count 2.91 MC/CUMM (3.8-5.5); Red Cell Distribution Width 16.3 % (9.3-17.3)
[2021-08-01 04:50] LABS: White Blood Count 43.4 T/CUMM (4-12)
[2021-08-01 05:01] LABS: Atypical Lymphocytes Few; Hypochromia 1+; Lymphocytes 45 % (20-55); Microcytosis 1+; Platelet Estimate Decreased; Segmented Neutrophils 55 % (50-85); Smudge Cells Many; Total Cells Counted 100
[2021-08-01] MEDS: POTASSIUM CHLORIDE RIDER 20 MEQ/100 ML PREMIX IV PRN (06:35)
[2021-08-01 09:23] LABS: ABG Base Excess 14.9 MMOL/L (-2.5-2.5); ABG HCO3 38.5 MMOL/L (20-26); ABG Oxygen Saturation 79.9 % (95-100); ABG PO2 49.5 MM HG (80-95); ABG TCO2 39.8 MMOL/L (23-27)
[2021-08-01 09:29] LABS: ABG PCO2 72.8 MM HG (35-48)
[2021-08-01] MEDS: FONDAPARINUX 2.5 MG/0.5 ML SYRINGE SUBCUT SCH (10:43)
[2021-08-01] MEDS: FUROSEMIDE 40 MG/4 ML VIAL IV SCH (10:43)
[2021-08-01] MEDS: PANTOPRAZOLE 40 MG VIAL IV SCH (10:45)
[2021-08-01] MEDS: HYDROCORTISONE 100 MG VIAL IV SCH ×2 (10:50→21:42)
[2021-08-01 11:42] LABS: ABG Base Excess 16.5 MMOL/L (-2.5-2.5); ABG HCO3 40.2 MMOL/L (20-26); ABG Oxygen Saturation 83.9 % (95-100); ABG PCO2 67.6 MM HG (35-48); ABG TCO2 40.7 MMOL/L (23-27)
[2021-08-01] MEDS: FLUCONAZOLE INJ 400 MG/200 ML PREMIX IV SCH (14:25)
[2021-08-01] MEDS: POTASSIUM CHLORIDE RIDER 10 MEQ/100 ML PREMIX IV PRN (16:30)
[2021-08-01] MEDS: VANCOMYCIN INJ 750 MG in SODIUM CHLORIDE 0.9% 250 ML IV SCH (17:31)
[2021-08-01] MEDS: HYDROcod/ACETAMIN 7.5-325 MG/15 ML UDCUP PO PRN (22:23)
[2021-08-02] MEDS: VANCOMYCIN INJ 750 MG in SODIUM CHLORIDE 0.9% 250 ML IV SCH ×3 (02:35→17:42)
[2021-08-02] MEDS: INSULIN REGULAR 100 UNIT/ML SUBCUT SCH ×4 (02:40→18:07)
[2021-08-02] MEDS: MEROPENEM 500 MG in SODIUM CHLORIDE 0.9% 100 ML IV SCH ×4 (05:45→20:35)
[2021-08-02] MEDS: ALBUTEROL/IPRATROPIUM 3 ML NEB RESP TX SCH ×3 (07:40→18:12)
[2021-08-02] MEDS: HYDROCORTISONE 100 MG VIAL IV SCH (08:46)
[2021-08-02] MEDS: PANTOPRAZOLE 40 MG VIAL IV SCH (08:46)
[2021-08-02] MEDS: FONDAPARINUX 2.5 MG/0.5 ML SYRINGE SUBCUT SCH (08:47)
[2021-08-02] MEDS: FUROSEMIDE 40 MG/4 ML VIAL IV SCH (08:47)
[2021-08-02] MEDS: methylPREDNISolone SOD SUC 40 MG/1 ML VIAL IV SCH ×2 (10:52→17:42)
[2021-08-02] MEDS: FLUCONAZOLE INJ 400 MG/200 ML PREMIX IV SCH (12:15)
[2021-08-02] MEDS: ACETYLCYSTEINE 20% 800 MG/4 ML VIAL RESP TX SCH ×2 (14:39→18:12)
[2021-08-02] MEDS: IBUPROFEN 100 MG/5 ML UDCUP PO PRN (19:50)
[2021-08-02] MEDS: MORPHINE 2 MG/1 ML SYRINGE IV PRN (21:12)
[2021-08-03] MEDS: INSULIN REGULAR 100 UNIT/ML SUBCUT SCH ×4 (00:02→18:04)
[2021-08-03] MEDS: ALBUTEROL/IPRATROPIUM 3 ML NEB RESP TX SCH ×5 (00:02→19:18)
[2021-08-03] MEDS: HYDROcod/ACETAMIN 7.5-325 MG/15 ML UDCUP PO PRN (00:27)
[2021-08-03] MEDS: ACETYLCYSTEINE 20% 800 MG/4 ML VIAL RESP TX SCH ×2 (00:52→10:08)
[2021-08-03] MEDS: VANCOMYCIN INJ 750 MG in SODIUM CHLORIDE 0.9% 250 ML IV SCH ×3 (01:00→18:28)
[2021-08-03 01:56] LABS: ABG Base Excess 16.7 MMOL/L (-2.5-2.5); ABG HCO3 40.5 MMOL/L (20-26); ABG Oxygen Saturation 87.8 % (95-100); ABG PH 7.344 (7.35-7.45); ABG PO2 61.3 MM HG (80-95); ABG TCO2 42.9 MMOL/L (23-27)
[2021-08-03] MEDS: methylPREDNISolone SOD SUC 40 MG/1 ML VIAL IV SCH ×3 (02:00→18:27)
[2021-08-03] MEDS: MEROPENEM 500 MG in SODIUM CHLORIDE 0.9% 100 ML IV SCH ×4 (02:00→20:51)
[2021-08-03 02:02] LABS: ABG PCO2 83.3 MM HG (35-48)
[2021-08-03] MEDS ORDERED: VECURONIUM 10 MG VIAL IV ONE (02:54)
[2021-08-03] MEDS ORDERED: ETOMIDATE 20 MG/10 ML VIAL IV ONE (02:54)
[2021-08-03 03:35] LABS: Calcium 7.9 MG/DL (8.5-10.1)
[2021-08-03 03:50] LABS: Osmolality,Calculated 313.2 MOS/KG (273-304); Potassium 4.5 MMOL/L (3.5-5.1)
[2021-08-03 03:54] LABS: Basophils % 0.1 % (0.0-0.8); Hematocrit 24.9 VOL% (42.0-52.0); Hemoglobin 7.1 GM/DL (14.0-18.0); Immature Granulocytes % 0.2 %; Immature Granulocytes Absolute 0.07 #; Lymphocytes # 23.2 10*3/uL (1.4-4.0); Lymphocytes % 79.6 % (21.2-54.2); Mean Corpuscular HGB Conc 28.5 GM/DL (32-36); Mean Platelet Volume 11.9 FL (9.6-12.0); Monocytes % 0.7 % (1.7-12.7); Neutrophils % 19.4 % (38.7-73.9); Platelet Count 80 T/CUMM (130-400); Red Blood Count 2.54 MC/CUMM (3.8-5.5); Red Cell Distribution Width 16.7 % (9.3-17.3); White Blood Count 29.1 T/CUMM (4-12)
[2021-08-03 04:00] LABS: Atypical Lymphocytes Few; Hypochromia 1+; Lymphocytes 51 % (20-55); Microcytosis 1+; Platelet Estimate Decreased; Segmented Neutrophils 49 % (50-85); Smudge Cells Moderate; Total Cells Counted 100
[2021-08-03 04:44] LABS: ABG Base Excess 16.6 MMOL/L (-2.5-2.5); ABG HCO3 43.7 MMOL/L (20-26); ABG Oxygen Saturation 99.3 % (95-100); ABG PH 7.368 (7.35-7.45); ABG PO2 284.1 MM HG (80-95); ABG TCO2 46.1 MMOL/L (23-27)
[2021-08-03 04:46] LABS: ABG PCO2 77.7 MM HG (35-48)
[2021-08-03] MEDS ORDERED: NOREPINEPHRINE 4 MG/4 ML VIAL IV ONE ×2 (07:02→07:06)
[2021-08-03] MEDS: NOREPINEPHRINE 8 MG in SODIUM CHLORIDE 0.9% 242 ML IV PRN ×2 (07:11→17:41)
[2021-08-03] MEDS: FUROSEMIDE 40 MG/4 ML VIAL IV SCH (08:15)
[2021-08-03] MEDS: FONDAPARINUX 2.5 MG/0.5 ML SYRINGE SUBCUT SCH (08:15)
[2021-08-03] MEDS: PANTOPRAZOLE 40 MG VIAL IV SCH (08:15)
[2021-08-03] MEDS: MIDAZOLAM 100 MG in SODIUM CHLORIDE 0.9% 80 ML IV PRN (09:13)
[2021-08-03] MEDS: FLUCONAZOLE INJ 400 MG/200 ML PREMIX IV SCH (12:30)
[2021-08-03] MEDS ORDERED: SODIUM CHLORIDE 0.9% 1,000 ML IV PRN (13:54)
[2021-08-03] MEDS: DORNASE ALFA 2.5 MG/2.5 ML VIAL RESP TX SCH (19:18)
[2021-08-03 20:13] LABS: Hematocrit 29.1 VOL% (42.0-52.0); Hemoglobin 8.5 GM/DL (14.0-18.0)
[2021-08-04] MEDS: INSULIN REGULAR 100 UNIT/ML SUBCUT SCH ×4 (00:33→17:56)
[2021-08-04] MEDS: ALBUTEROL/IPRATROPIUM 3 ML NEB RESP TX SCH ×4 (00:58→19:31)
[2021-08-04] MEDS: MEROPENEM 500 MG in SODIUM CHLORIDE 0.9% 100 ML IV SCH ×4 (02:28→20:30)
[2021-08-04] MEDS: methylPREDNISolone SOD SUC 40 MG/1 ML VIAL IV SCH ×3 (02:30→18:05)
[2021-08-04 04:10] LABS: ABG Base Excess 16.2 MMOL/L (-2.5-2.5); ABG HCO3 43.9 MMOL/L (20-26); ABG Oxygen Saturation 93.5 % (95-100); ABG PH 7.364 (7.35-7.45); ABG PO2 74.8 MM HG (80-95); ABG TCO2 46.3 MMOL/L (23-27); Allen Test Positive; Pt O2 Delivery Device Ventilator
[2021-08-04 04:12] LABS: ABG PCO2 78.7 MM HG (35-48)
[2021-08-04 05:39] LABS: Calcium 7.9 MG/DL (8.5-10.1)
[2021-08-04 05:49] LABS: Basophils # 0.1 10*3/uL (0.0-0.2); Basophils % 0.1 % (0.0-0.8); Hematocrit 27.2 VOL% (42.0-52.0); Hemoglobin 8.1 GM/DL (14.0-18.0); Immature Granulocytes % 0.2 %; Immature Granulocytes Absolute 0.07 #; Lymphocytes # 28.3 10*3/uL (1.4-4.0); Lymphocytes % 81.7 % (21.2-54.2); Mean Corpuscular HGB Conc 29.8 GM/DL (32-36); Mean Corpuscular Volume 97.5 FL (87-102); Mean Platelet Volume 12.4 FL (9.6-12.0); Monocytes % 1.1 % (1.7-12.7); Neutrophils % 16.9 % (38.7-73.9); Platelet Count 87 T/CUMM (130-400); Red Blood Count 2.79 MC/CUMM (3.8-5.5); Red Cell Distribution Width 16.1 % (9.3-17.3); White Blood Count 34.7 T/CUMM (4-12)
[2021-08-04 06:00] LABS: Hypochromia Slight; Lymphocytes 65 % (20-55); Platelet Estimate Decreased; Potassium 4.1 MMOL/L (3.5-5.1); Segmented Neutrophils 34 % (50-85); Smudge Cells Moderate; Total Cells Counted 100
[2021-08-04 06:01] LABS: Osmolality,Calculated 305.7 MOS/KG (273-304)
[2021-08-04] MEDS: VANCOMYCIN INJ 750 MG in SODIUM CHLORIDE 0.9% 250 ML IV SCH ×2 (06:38→18:18)
[2021-08-04] MEDS: DORNASE ALFA 2.5 MG/2.5 ML VIAL RESP TX SCH ×2 (07:49→19:41)
[2021-08-04] MEDS: FONDAPARINUX 2.5 MG/0.5 ML SYRINGE SUBCUT SCH (09:01)
[2021-08-04] MEDS: PANTOPRAZOLE 40 MG VIAL IV SCH (09:01)
[2021-08-04] MEDS: FUROSEMIDE 40 MG/4 ML VIAL IV SCH (09:01)
[2021-08-04] MEDS: POLYETHYLENE GLYCOL POWDER 17 GM PACK PO SCH (10:37)
[2021-08-04] MEDS: DOCUSATE SODIUM 100 MG/10 ML UDCUP PO SCH ×2 (10:37→21:51)
[2021-08-04] MEDS: SODIUM CHLORIDE 0.45% 1,000 ML IV SCH (12:00)
[2021-08-04] MEDS: FLUCONAZOLE INJ 400 MG/200 ML PREMIX IV SCH (12:35)
[2021-08-05] MEDS: INSULIN REGULAR 100 UNIT/ML SUBCUT SCH ×4 (00:42→17:36)
[2021-08-05] MEDS: ALBUTEROL/IPRATROPIUM 3 ML NEB RESP TX SCH ×4 (01:05→19:02)
[2021-08-05] MEDS: MEROPENEM 500 MG in SODIUM CHLORIDE 0.9% 100 ML IV SCH ×4 (02:34→20:48)
[2021-08-05] MEDS: methylPREDNISolone SOD SUC 40 MG/1 ML VIAL IV SCH ×3 (02:35→17:55)
[2021-08-05 04:33] LABS: ABG Base Excess 16.3 MMOL/L (-2.5-2.5); ABG HCO3 40.2 MMOL/L (20-26); ABG Oxygen Saturation 98.2 % (95-100); ABG PH 7.394 (7.35-7.45); ABG TCO2 41.2 MMOL/L (23-27)
[2021-08-05 04:36] LABS: ABG PCO2 71.6 MM HG (35-48)
[2021-08-05 04:37] LABS: Basophils % 0.1 % (0.0-0.8); Hematocrit 25.4 VOL% (42.0-52.0); Hemoglobin 7.4 GM/DL (14.0-18.0); Immature Granulocytes % 0.1 %; Immature Granulocytes Absolute 0.02 #; Lymphocytes # 13.3 10*3/uL (1.4-4.0); Lymphocytes % 83.2 % (21.2-54.2); Mean Corpuscular HGB Conc 29.1 GM/DL (32-36); Mean Corpuscular Volume 98.8 FL (87-102); Mean Platelet Volume 12.1 FL (9.6-12.0); NRBC # 0.02 10*3/uL; Neutrophils % 15.6 % (38.7-73.9); Platelet Count 60 T/CUMM (130-400); Red Blood Count 2.57 MC/CUMM (3.8-5.5); Red Cell Distribution Width 16.3 % (9.3-17.3); White Blood Count 15.9 T/CUMM (4-12)
[2021-08-05] MEDS: MIDAZOLAM 100 MG in SODIUM CHLORIDE 0.9% 80 ML IV PRN (04:41)
[2021-08-05 04:47] LABS: Calcium 7.7 MG/DL (8.5-10.1); Osmolality,Calculated 300.1 MOS/KG (273-304)
[2021-08-05] MEDS: VANCOMYCIN INJ 750 MG in SODIUM CHLORIDE 0.9% 250 ML IV SCH ×2 (05:24→18:46)
[2021-08-05 06:37] LABS: Anisocytosis Slight; Hypochromia 1+; Lymphocytes 43 % (20-55); Platelet Estimate Decreased; Segmented Neutrophils 57 % (50-85); Smudge Cells 2+; Total Cells Counted 100
[2021-08-05 06:39] LABS: Microcytosis Slight; Target Cells Slight
[2021-08-05 06:40] LABS: Spherocytes Slight
[2021-08-05] MEDS: DORNASE ALFA 2.5 MG/2.5 ML VIAL RESP TX SCH ×2 (07:00→19:12)
[2021-08-05] MEDS: SODIUM CHLORIDE 0.45% 1,000 ML IV SCH (07:00)
[2021-08-05] MEDS: DOCUSATE SODIUM 100 MG/10 ML UDCUP PO SCH (08:17)
[2021-08-05] MEDS: FONDAPARINUX 2.5 MG/0.5 ML SYRINGE SUBCUT SCH (08:17)
[2021-08-05] MEDS: PANTOPRAZOLE 40 MG VIAL IV SCH (08:18)
[2021-08-05] MEDS: POLYETHYLENE GLYCOL POWDER 17 GM PACK PO SCH (08:18)
[2021-08-05] MEDS ORDERED: LACTULOSE 20 GM/30 ML UDCUP PO SCH (09:00)
[2021-08-05] MEDS: DEXTROSE 5% 1,000 ML IV SCH (10:37)
[2021-08-05] MEDS: FLUCONAZOLE INJ 400 MG/200 ML PREMIX IV SCH (12:34)
[2021-08-06] MEDS: INSULIN REGULAR 100 UNIT/ML SUBCUT SCH ×3 (00:10→12:25)
[2021-08-06] MEDS: ALBUTEROL/IPRATROPIUM 3 ML NEB RESP TX SCH ×3 (00:28→13:24)
[2021-08-06] MEDS: MEROPENEM 500 MG in SODIUM CHLORIDE 0.9% 100 ML IV SCH ×3 (03:04→14:29)
[2021-08-06] MEDS: methylPREDNISolone SOD SUC 40 MG/1 ML VIAL IV SCH ×3 (03:05→17:10)
[2021-08-06 03:25] LABS: ABG Base Excess 13.3 MMOL/L (-2.5-2.5); ABG HCO3 38.7 MMOL/L (20-26); ABG Oxygen Saturation 92.3 % (95-100); ABG PCO2 55.7 MM HG (35-48); ABG PO2 66.4 MM HG (80-95); ABG TCO2 40.4 MMOL/L (23-27)
[2021-08-06 04:37] LABS: Basophils % 0.1 % (0.0-0.8); Hematocrit 25.9 VOL% (42.0-52.0); Hemoglobin 7.7 GM/DL (14.0-18.0); Immature Granulocytes % 0.1 %; Immature Granulocytes Absolute 0.02 #; Lymphocytes # 15.7 10*3/uL (1.4-4.0); Lymphocytes % 86.8 % (21.2-54.2); Mean Corpuscular HGB Conc 29.7 GM/DL (32-36); Mean Platelet Volume 12.6 FL (9.6-12.0); Monocytes % 0.7 % (1.7-12.7); NRBC # 0.03 10*3/uL; Neutrophils % 12.3 % (38.7-73.9); Platelet Count 65 T/CUMM (130-400); Red Blood Count 2.67 MC/CUMM (3.8-5.5); Red Cell Distribution Width 16.4 % (9.3-17.3); White Blood Count 18.1 T/CUMM (4-12)
[2021-08-06 04:45] LABS: Calcium 7.7 MG/DL (8.5-10.1); Osmolality,Calculated 298.3 MOS/KG (273-304); Potassium 3.8 MMOL/L (3.5-5.1)
[2021-08-06 05:05] LABS: Atypical Lymphocytes Few; Hypochromia 1+; Lymphocytes 45 % (20-55); Microcytosis 1+; Platelet Estimate Decreased; Segmented Neutrophils 53 % (50-85); Smudge Cells Moderate; Total Cells Counted 100
[2021-08-06] MEDS: VANCOMYCIN INJ 750 MG in SODIUM CHLORIDE 0.9% 250 ML IV SCH (05:38)
[2021-08-06] MEDS: DORNASE ALFA 2.5 MG/2.5 ML VIAL RESP TX SCH (07:20)
[2021-08-06] MEDS: DEXTROSE 5% 1,000 ML IV SCH ×2 (08:00→14:57)
[2021-08-06] MEDS: PANTOPRAZOLE 40 MG VIAL IV SCH (09:06)
[2021-08-06] MEDS: FONDAPARINUX 2.5 MG/0.5 ML SYRINGE SUBCUT SCH (09:07)
[2021-08-06 09:08] VITALS: BP 129/77
[2021-08-06] MEDS: FLUCONAZOLE INJ 400 MG/200 ML PREMIX IV SCH (14:00)
[2021-08-06] MEDS: MIDAZOLAM 100 MG in SODIUM CHLORIDE 0.9% 80 ML IV PRN (14:00)
== END 2021-08-06 17:20 | DRG 329 ==
LOC: N.ED 23:24 → N.EDINP 07-15 00:42 → N.3E 07-15 01:17 → N.ICU 07-18 14:22
PROVIDERS: ADMIT Surgery; ATTEND Surgery